=== PATIENT | female | born 1960 | race Caucasian/White ===

== ENCOUNTER 2019-04-09 20:58 | Emergency (ER) | payer SELFPAY ==
--- NOTE | 2019-04-09 21:19 | ED Physician Chart ---
ED Chief Complaint/HPI - Patient Information Date Seen:: 04/09/19 Time Seen:: 21:16 Chief Complaint:: etoh History of Present Illness:: 58 yr old female on adrinking binge for 9 days with tequilla Allergies:: Allergies Allergy/AdvReac Type Severity Reaction Status Date / Time No Known Allergies Allergy Verified 04/09/19 21:01 Vitals:: Vital Signs - 8 hr 04/09/19 21:02 Temp 98.2 F HR 87 RR 19 BP 108/57 O2 Sat % 96 ED Review of Systems - Review of Systems General/Constitutional: No fever, No chills, No weight loss, No weakness, No diaphoresis, No edema, No loss of appetite Skin: No skin lesions, No rash, No bruising Head: No headache, No light-headedness Eyes: No loss of vision, No pain, No diplopia ENT: No earache, No nasal drainage, No sore throat, No tinnitus Neck: No neck pain, No swelling, No thyromegaly, No stiffness, No mass noted Cardio Vascular: No chest pain, No palpitations, No PND, No orthopnea, No edema Pulmonary: No SOB, No cough, No sputum, No wheezing GI: No nausea, No vomiting, No diarrhea, No pain, No melena, No hematochezia, No constipation, No hematemesis G/U: No dysuria, No frequency, No hematuria Musculoskeletal: No bone or joint pain, No back pain, No muscle pain Endocrine: No polyuria, No polydipsia Psychiatric: No prior psych history, No depression, No anxiety, No suicidal ideation Hematopoietic: No bruising, No lymphadenopathy Allergic/Immuno: No urticaria, No angioedema Neurological: No syncope, No focal symptoms, No weakness, No paresthesia, No headache, No seizure, No dizziness, No confusion, No vertigo ED Past Medical History - Past Medical History Past Medical History: No significant medical hx Family Medical History - Family Member Mother History Unknown: Yes ED Physical Exam - Physical Examination General/Constitutional: Awake, Well-developed, well-nourished, Alert, No distress, GCS 15, Non-toxic appearing, Ambulatory Head: Atraumatic Eyes: Lids, conjuctiva normal, PERRL, EOMI Skin: Nl inspection, No rash, No skin lesions, No ecchymosis, Well hydrated, No lymphadenopathy ENMT: External ears, nose nl, Nasal exam nl, Lips, teeth, gums nl Neck: Nontender, Full ROM w/o pain, No JVD, No nuchal rigidity, No bruit, No mass, No stridor Respiratory: Nl effort/Exclusion, Clear to Auscultation, No Wheeze/Rhonchi/Rales Cardio Vascular: RRR, No murmur, gallop, rubs, NL S1 S2 GI: No tenderness/rebounding/guarding, No organomegaly, No hernia, Normal BS's, Nondistended, No mass/bruits, No McBurney tenderness : No CVA tenderness Extremities: No tenderness or effusion, Full ROM, normal strength in all extremities, No edema, Normal digits & nails Neuro/Psych: Alert/oriented, DTR's symmetric, Normal sensory exam, Normal motor strength, Judgement/insight normal, Mood normal, Normal gait, No focal deficits Misc: Normal back, No paraspinal tenderness ED Assessment - Assessment General Assessment: etoh intoxication ED Septic Shock - . Is Septic Shock (SBP<90, OR Lactate>4 mmol\L) present?: No - <6hrs of presentation: Vital Signs: Vital Signs - 8 hr 04/09/19 21:02 Temp 98.2 F HR 87 RR 19 BP 108/57 O2 Sat % 96 ED Reassessment (Disposition) - Reassessment Reassessment:: etoh abuse - Diagnosis Diagnosis:: etoh abuse - Patient Disposition Condition at Disposition:: Stable
[2019-04-09] MEDS: Sodium Chloride 0.9% 1,000 ML IV ONE (21:21)
[2019-04-09] MEDS: Multivitamin Inj 10 ML, Thiamine HCL 100 MG, Magnesium Sulfate 2 GM, Folic Acid 1 MG in... IV ONE (21:22)
[2019-04-09] MEDS ORDERED: Thiamine 100 mg/mL 2mL Vial ONE (21:23)
[2019-04-09] MEDS ORDERED: Magnesium Sulfate 1 gm/2 mL 2mL Vial IV ONE (21:23)
[2019-04-09] MEDS ORDERED: Multivitamin Inj 10 mL Vial IV ONE (21:25)
[2019-04-09 21:27] LABS: % BASOPHILS 0.4 % (0.0-2.0); % EOSINOPHILS 1.1 % (0.0-5.0); % LYMPHOCYTES 11.7 % (20.0-50.0); % NEUTROPHILS 73.8 % (40.0-80.0); EOSINOPHILE ABSOLUTE 0.1 Th/cmm (0.1-0.4); HEMATOCRIT 37.7 % (41.0-60); LYMPHOCYTE ABSOLUTE 1.2 Th/cmm (1.5-3.0); MEAN CELL VOLUME 96.1 fl (81-100); MEAN CORPUSCULAR HEMOGLOBIN 33.1 pg (27.0-31.0); MEAN CORPUSCULAR HGB CONC 34.4 pg (28.0-36.0); MONOCYTE ABSOLUTE 1.3 Th/cmm (0.3-1.0); NEUTROPHILE ABSOLUTE 7.7 Th/cmm (1.8-8.0); PLATELET COUNT 229 Th/cmm (150-400); RED BLOOD COUNT 3.93 Mil/cmm (3.80-5.10); RED CELL DISTRIBUTION WIDTH 12.4 % (11.5-20.0); WHITE BLOOD COUNT 10.3 Th/cmm (4.8-10.8)
[2019-04-09 21:43] LABS: ALB/GLOB RATIO 1.2 (1.0-1.8); ALBUMIN 3.8 gm/dL (3.7-5.3); ALKALINE PHOSPHATASE 59 U/L (34-104); ANION GAP 18.9 (7.0-16.0); BILIRUBIN,TOTAL 0.5 mg/dL (0.3-1.0); BUN - UREA NITROGEN 6 mg/dL (7-25); CALCIUM SERUM 8.1 mg/dL (8.6-10.3); CARBON DIOXIDE 23.4 mEq/L (21.0-31.0); CHLORIDE 91 mEq/L (98-107); CREATININE - SERUM 0.9 mg/dL (0.6-1.2); GFR AFRICAN-AMERICAN > 60.0 ml/min (>90); GFR NON AFRICAN-AMERICAN > 60.0 ml/min; GLUCOSE 116 mg/dL (70-105); SGOT 81 U/L (13-39); SGPT/ALT 39 U/L (7-52); SODIUM SERUM 131 mEq/L (136-145); TOTAL PROTEIN,SERUM 6.9 gm/dL (6.0-8.3)
[2019-04-09 21:56] LABS: POTASSIUM SERUM 2.3 mEq/L (3.5-5.1)
[2019-04-09] MEDS ORDERED: Potassium Chloride 20 mEq ER Tab PO ONE (22:08)
[2019-04-09] MEDS: Potassium Chloride 20 mEq ER Tab PO ONE (22:11)
== END 2019-04-10 06:20 | disposition home or self-care (01) ==
LOC: ER 20:58
DX: F10.129 Alcohol abuse with intoxication, unspecified (principal); Y90.8 Blood alcohol level of 240 mg/100 ml or more
CPT/HCPCS: 99283; 96374; 36415; 85025; 80320; 80053; J3411; J3475; J7030; X6598; Z7502; Z7610